=== PATIENT | female | born 1970 | race Caucasian/White ===

== ENCOUNTER 2018-03-07 12:14 | Day surgery (SDC) | payer BC ==
[~2018-03-07 12:14] MED LIST: CEFAZOLIN 1 GM INJ; DEXAMETHASONE 4 MG/ML 1 ML INJ
[2018-03-07] MEDS ORDERED: VASOPRESSIN 20 UNITS INJ (13:39)
[2018-03-07] MEDS ORDERED: NEOSTIGMINE 3 MG/3 ML SYRINGE (13:56)
[2018-03-07] MEDS ORDERED: GLYCOPYRROLATE 0.4 MG INJ (13:56)
[2018-03-07] MEDS ORDERED: FENTAnyl 50 MCG/ML VIAL (13:56)
[2018-03-07] MEDS ORDERED: PROPOFOL 20 ML (13:56)
[2018-03-07] MEDS ORDERED: ROCURONIUM 50 MG INJ (13:56)
[2018-03-07] MEDS ORDERED: DEXAMETHASONE 4 MG/ML 1 ML INJ (13:56)
[2018-03-07] MEDS ORDERED: MIDAZOLAM 1 MG/ML 2 ML INJ (13:56)
[2018-03-07] MEDS ORDERED: LIDOCAINE 2% (SDV) 5 ML INJ (13:56)
[2018-03-07] MEDS ORDERED: ONDANSETRON 4 MG INJ (13:57)
[2018-03-07] MEDS ORDERED: ATROPINE 1 MG/10 ML SYRINGE IV (14:00)
[2018-03-07] MEDS ORDERED: LABETALOL HCL 20MG INJ IV (14:00)
[2018-03-07] MEDS ORDERED: MIDAZOLAM 1 MG/ML 2 ML INJ IV (14:00)
[2018-03-07] MEDS ORDERED: ONDANSETRON 4 MG INJ IV (14:00)
[2018-03-07] MEDS ORDERED: OXYCODONE/ACETAMINOPHEN (5/325) TAB PO ×2 (14:00)
[2018-03-07] MEDS ORDERED: morphine (1 MG/ML) 10ML SYRINGE IV ×3 (14:00)
[2018-03-07] MEDS ORDERED: HYDROmorphONE 1 MG/5 ML IV SYRINGE IV ×3 (14:00)
[2018-03-07] MEDS ORDERED: FENTAnyl 50 MCG/ML VIAL IV ×2 (14:00)
[2018-03-07] MEDS ORDERED: MEPERIDINE 25 MG INJ IV (14:00)
[2018-03-07] MEDS ORDERED: DIPHENHYDRAMINE 50 MG INJ IV (14:00)
[2018-03-07] MEDS ORDERED: hydrALAzine 20 MG INJ IV (14:00)
[2018-03-07] MEDS ORDERED: EPHEDrine SULFATE 50 MG/5 ML SYG IV (14:00)
[2018-03-07] MEDS ORDERED: ACETAMINOPHEN 325 MG TAB PO (15:00)
== END 2018-03-07 16:00 | disposition home or self-care (01) ==
LOC: SDS 12:14
DX: N95.0 Postmenopausal bleeding (principal); E66.01 Morbid (severe) obesity due to excess calories; E11.9 Type 2 diabetes mellitus without complications
CPT/HCPCS: 58120; 82962; 84703; 86850; 86900; 86901

== ENCOUNTER 2018-10-12 10:15 | Inpatient (IN) | payer BC ==
[2018-10-12] MEDS ORDERED: CHOLECALCIFEROL 2,000 UNIT CAP PO (12:00)
[2018-10-12] MEDS ORDERED: GLUCOSE GEL 15 GRAM TUBE PO ×2 (12:30)
[2018-10-12] MEDS ORDERED: DEXTROSE 50% 50 ML SYRINGE IV ×2 (12:30)
[2018-10-12] MEDS ORDERED: GLUCAGON 1 MG INJ IM (12:30)
[2018-10-12] MEDS ORDERED: GLUCOSE GEL 15 GRAM TUBE BUCCAL (12:30)
[2018-10-12] MEDS: DEXTROSE 5%-0.45% NACL 1,000 ML IV (13:23)
[2018-10-12] MEDS: ASPIRIN (EC) 81 MG TAB PO (13:23)
[2018-10-12] MEDS: INSULIN ASPART [NOVOLOG] 3 ML PEN SC ×3 (13:30→20:20)
[2018-10-12] MEDS: IBUPROFEN 800 MG TAB PO (13:30)
[2018-10-12] MEDS: CEFTRIAXONE 1 GM/50 ML (PMX) 50 ML IVPB (16:11)
[2018-10-12 17:05] LABS: HEMATOCRIT 39.2 % (37.0-47.0); HEMOGLOBIN 12.6 g/dl (12.0-16.0)
[2018-10-12] MEDS ORDERED: metFORMIN 500 MG TAB PO (18:05)
[2018-10-12] MEDS: SERTRALINE 100 MG TAB PO (20:18)
[2018-10-12] MEDS: IBUPROFEN 400 MG TAB PO (20:18)
[2018-10-12] MEDS: ATORVASTATIN 20 MG TAB PO (20:18)
[2018-10-13 05:14] LABS: ADD MAN DIFF? NO
[2018-10-13 05:17] LABS: BASOPHIL # 0.1 10^3/ul (0.0-0.1); BASOPHILS % 0.7 % (0.0-2.0); EOSINOPHILS # 0.6 10^3/ul (0.0-0.5); HEMATOCRIT 40.9 % (37.0-47.0); HEMOGLOBIN 12.9 g/dl (12.0-16.0); LYMPHOCYTES # 2.1 10^3/ul (0.8-2.9); LYMPHOCYTES % 22.6 % (15.0-51.0); MEAN CORPUSCULAR HEMOGLOBIN 26.1 pg (29.0-33.0); MEAN CORPUSCULAR HGB CONC 31.5 g/dl (32.0-37.0); MEAN CORPUSCULAR VOLUME 82.8 fl (82.0-101.0); MEAN PLATELET VOLUME 9.4 fl (7.4-10.4); MONOCYTE # 0.7 10^3/ul (0.3-0.9); MONOCYTES % 8.1 % (0.0-11.0); NEUTROPHIL # 5.7 10^3/ul (1.6-7.5); NEUTROPHILS % 62.4 % (39.0-77.0); PLATELET COUNT 337 10^3/UL (140-415); RED BLOOD COUNT 4.94 10^6/ul (4.20-5.40); RED CELL DISTRIBUTION WIDTH 14.4 % (11.5-14.5)
[2018-10-13 05:17] LABS: WHITE BLOOD COUNT 9.1 10^3/ul (4.8-10.8)
[2018-10-13 05:59] LABS: ALANINE AMINOTRANSFERASE 26 IU/L (13-69); ALBUMIN/GLOBULIN RATIO 1.17; ALKALINE PHOSPHATASE 90 IU/L (42-121); ANION GAP 10 (5-13); ASPARTATE AMINO TRANSFERASE 28 IU/L (15-46); BILIRUBIN,INDIRECT 0.7 mg/dl (0-1.1); BILIRUBIN,TOTAL 0.7 mg/dl (0.2-1.3); BLOOD UREA NITROGEN 10 mg/dl (7-20); CALCIUM 9.8 mg/dl (8.4-10.2); CARBON DIOXIDE 31 mmol/L (21-31); CHLORIDE 102 mmol/L (97-110); CREATININE 0.44 mg/dl (0.44-1.00); Estimated GFR > 60 mL/min (>60); GLUCOSE 146 mg/dl (70-220); SODIUM 143 mmol/L (135-144); TOTAL PROTEIN 7.4 g/dl (6.1-8.1)
[2018-10-13] MEDS ORDERED: LANSOPRAZOLE 15 MG CAP GTB (06:00)
[2018-10-13 06:03] LABS: POTASSIUM 2.8 mmol/L (3.5-5.1)
[2018-10-13] MEDS: ONDANSETRON 4 MG INJ IV ×3 (06:43→23:53)
[2018-10-13] MEDS: POTASSIUM CHLORIDE 100 ML IVPB ×2 (06:44→11:56)
[2018-10-13] MEDS: INSULIN ASPART [NOVOLOG] 3 ML PEN SC ×4 (08:00→20:48)
[2018-10-13] MEDS: IBUPROFEN 400 MG TAB PO (08:24)
[2018-10-13] MEDS: ASPIRIN (EC) 81 MG TAB PO (08:24)
[2018-10-13] MEDS: hydrALAzine 20 MG INJ IV (08:24)
[2018-10-13] MEDS: INFLUENZA VIRUS VACCINE 0.5 ML (DISPENSING) IM* (09:00)
[2018-10-13] MEDS: METOCLOPRAMIDE 10 MG INJ IV ×3 (11:30→20:41)
[2018-10-13] MEDS: LOSARTAN 50 MG TAB PO (11:56)
[2018-10-13 13:10] LABS: LIPASE 98 U/L (23-300)
[2018-10-13] MEDS: DEXTROSE 5%-0.45% NACL 1,000 ML IV (15:26)
[2018-10-13] MEDS: CEFTRIAXONE 1 GM/50 ML (PMX) 50 ML IVPB (15:26)
[2018-10-13] MEDS: ATORVASTATIN 20 MG TAB PO (23:05)
[2018-10-13] MEDS: SERTRALINE 100 MG TAB PO (23:05)
[2018-10-13] MEDS: SUCRALFATE (100 MG/ML) 10ML CUP PO (23:54)
[2018-10-14] MEDS: hydrALAzine 20 MG INJ IV ×2 (00:22→23:04)
[2018-10-14] MEDS: METOCLOPRAMIDE 10 MG INJ IV ×4 (02:54→19:08)
[2018-10-14 05:37] LABS: ADD MAN DIFF? NO
[2018-10-14] MEDS: LANSOPRAZOLE 15 MG CAP GTB (05:40)
[2018-10-14 05:47] LABS: BASOPHILS % 0.3 % (0.0-2.0); EOSINOPHILS # 0.1 10^3/ul (0.0-0.5); HEMATOCRIT 39.6 % (37.0-47.0); HEMOGLOBIN 12.7 g/dl (12.0-16.0); LYMPHOCYTES # 2.3 10^3/ul (0.8-2.9); LYMPHOCYTES % 18.1 % (15.0-51.0); MEAN CORPUSCULAR HEMOGLOBIN 26.2 pg (29.0-33.0); MEAN CORPUSCULAR HGB CONC 32.1 g/dl (32.0-37.0); MEAN CORPUSCULAR VOLUME 81.8 fl (82.0-101.0); MONOCYTE # 1.1 10^3/ul (0.3-0.9); MONOCYTES % 8.6 % (0.0-11.0); NEUTROPHILS % 71.4 % (39.0-77.0); PLATELET COUNT 430 10^3/UL (140-415); RED BLOOD COUNT 4.84 10^6/ul (4.20-5.40); RED CELL DISTRIBUTION WIDTH 14.3 % (11.5-14.5)
[2018-10-14 05:47] LABS: WHITE BLOOD COUNT 12.6 10^3/ul (4.8-10.8)
[2018-10-14 06:01] LABS: ANION GAP 11 (5-13); BLOOD UREA NITROGEN 10 mg/dl (7-20); CALCIUM 9.7 mg/dl (8.4-10.2); CARBON DIOXIDE 27 mmol/L (21-31); CHLORIDE 100 mmol/L (97-110); Estimated GFR > 60 mL/min (>60); GLUCOSE 166 mg/dl (70-220); SODIUM 138 mmol/L (135-144)
[2018-10-14 06:11] LABS: POTASSIUM 2.8 mmol/L (3.5-5.1)
[2018-10-14] MEDS: INSULIN ASPART [NOVOLOG] 3 ML PEN SC ×4 (08:00→21:00)
[2018-10-14] MEDS: SUCRALFATE (100 MG/ML) 10ML CUP PO ×3 (09:00→21:59)
[2018-10-14] MEDS: ASPIRIN (EC) 81 MG TAB PO (09:00)
[2018-10-14] MEDS: LOSARTAN 50 MG TAB PO (09:00)
[2018-10-14] MEDS: POTASSIUM CHLORIDE 100 ML IVPB ×2 (09:37→14:30)
[2018-10-14] MEDS: DEXTROSE 5%-0.45% NACL 1,000 ML IV ×2 (12:00→23:08)
[2018-10-14] MEDS: CEFTRIAXONE 1 GM/50 ML (PMX) 50 ML IVPB (19:08)
[2018-10-14] MEDS: SERTRALINE 100 MG TAB PO (21:29)
[2018-10-14] MEDS: ATORVASTATIN 20 MG TAB PO (21:29)
[2018-10-15] MEDS: METOCLOPRAMIDE 10 MG INJ IV ×4 (02:11→22:38)
[2018-10-15] MEDS: morphine 2 MG INJ IV ×2 (02:15→15:52)
[2018-10-15] MEDS: INSULIN ASPART [NOVOLOG] 3 ML PEN SC ×5 (05:00→20:35)
[2018-10-15] MEDS: LANSOPRAZOLE 15 MG CAP GTB (05:24)
[2018-10-15 05:47] LABS: ADD MAN DIFF? NO
[2018-10-15 05:54] LABS: BASOPHILS % 0.3 % (0.0-2.0); EOSINOPHILS # 0.2 10^3/ul (0.0-0.5); EOSINOPHILS % 2.5 % (0.0-7.0); HEMATOCRIT 38.8 % (37.0-47.0); HEMOGLOBIN 12.3 g/dl (12.0-16.0); LYMPHOCYTES # 2.1 10^3/ul (0.8-2.9); LYMPHOCYTES % 23.1 % (15.0-51.0); MEAN CORPUSCULAR HEMOGLOBIN 26.3 pg (29.0-33.0); MEAN CORPUSCULAR HGB CONC 31.7 g/dl (32.0-37.0); MEAN CORPUSCULAR VOLUME 82.9 fl (82.0-101.0); MEAN PLATELET VOLUME 9.4 fl (7.4-10.4); MONOCYTE # 0.7 10^3/ul (0.3-0.9); MONOCYTES % 7.5 % (0.0-11.0); NEUTROPHIL # 6.1 10^3/ul (1.6-7.5); NEUTROPHILS % 66.2 % (39.0-77.0); PLATELET COUNT 346 10^3/UL (140-415); RED BLOOD COUNT 4.68 10^6/ul (4.20-5.40); RED CELL DISTRIBUTION WIDTH 14.4 % (11.5-14.5)
[2018-10-15 05:54] LABS: WHITE BLOOD COUNT 9.2 10^3/ul (4.8-10.8)
[2018-10-15 06:11] LABS: INR 1.11; PARTIAL THROMBOPLASTIN TIME 28.6 Sec (23.0-35.0); PROTIME 14.4 Sec (11.9-14.9); PT RATIO 1.1
[2018-10-15 06:26] LABS: ALANINE AMINOTRANSFERASE 30 IU/L (13-69); ALBUMIN 3.7 g/dl (3.3-4.9); ALBUMIN/GLOBULIN RATIO 1.19; ALKALINE PHOSPHATASE 80 IU/L (42-121); ANION GAP 9 (5-13); ASPARTATE AMINO TRANSFERASE 28 IU/L (15-46); BILIRUBIN,INDIRECT 0.8 mg/dl (0-1.1); BILIRUBIN,TOTAL 0.8 mg/dl (0.2-1.3); BLOOD UREA NITROGEN 10 mg/dl (7-20); CALCIUM 9.4 mg/dl (8.4-10.2); CARBON DIOXIDE 30 mmol/L (21-31); CHLORIDE 101 mmol/L (97-110); CREATININE 0.37 mg/dl (0.44-1.00); Estimated GFR > 60 mL/min (>60); GLUCOSE 139 mg/dl (70-220); LIPASE 69 U/L (23-300); SODIUM 140 mmol/L (135-144); TOTAL PROTEIN 6.8 g/dl (6.1-8.1)
[2018-10-15 06:30] LABS: POTASSIUM 2.9 mmol/L (3.5-5.1)
[2018-10-15] MEDS: ASPIRIN (EC) 81 MG TAB PO (09:00)
[2018-10-15] MEDS: LOSARTAN 50 MG TAB PO (09:00)
[2018-10-15] MEDS: SUCRALFATE (100 MG/ML) 10ML CUP PO ×2 (09:00→21:02)
[2018-10-15] MEDS: POTASSIUM CHLORIDE 100 ML IVPB ×2 (09:30→13:49)
[2018-10-15] MEDS: ONDANSETRON 4 MG INJ IV (12:43)
[2018-10-15] MEDS: hydrALAzine 20 MG INJ IV (13:06)
[2018-10-15] MEDS: PROPOFOL 40 ML (13:51)
[2018-10-15] MEDS: DEXTROSE 5%-0.45% NACL 1,000 ML IV (13:55)
[2018-10-15] MEDS: ERYTHROMYCIN BASE (DR) 250 MG CAP PO ×2 (15:52→21:03)
[2018-10-15] MEDS: CEFTRIAXONE 1 GM/50 ML (PMX) 50 ML IVPB (15:52)
[2018-10-15] MEDS: FLUCONAZOLE 200 MG TAB PO (15:52)
[2018-10-15 17:15] LABS: POTASSIUM 3.1 mmol/L (3.5-5.1)
[2018-10-15] MEDS: ATORVASTATIN 20 MG TAB PO (21:03)
[2018-10-15] MEDS: SERTRALINE 100 MG TAB PO (21:03)
[2018-10-16] MEDS: ERYTHROMYCIN BASE (DR) 250 MG CAP PO ×2 (06:13→13:42)
[2018-10-16] MEDS: LANSOPRAZOLE 15 MG CAP GTB (06:13)
[2018-10-16 06:29] LABS: ADD MAN DIFF? NO
[2018-10-16 06:35] LABS: WHITE BLOOD COUNT 8.8 10^3/ul (4.8-10.8)
[2018-10-16 06:35] LABS: BASOPHIL # 0.1 10^3/ul (0.0-0.1); BASOPHILS % 0.8 % (0.0-2.0); EOSINOPHILS # 0.4 10^3/ul (0.0-0.5); EOSINOPHILS % 4.2 % (0.0-7.0); HEMATOCRIT 38.7 % (37.0-47.0); HEMOGLOBIN 12.2 g/dl (12.0-16.0); LYMPHOCYTES # 2.7 10^3/ul (0.8-2.9); LYMPHOCYTES % 31.1 % (15.0-51.0); MEAN CORPUSCULAR HEMOGLOBIN 26.3 pg (29.0-33.0); MEAN CORPUSCULAR HGB CONC 31.5 g/dl (32.0-37.0); MEAN CORPUSCULAR VOLUME 83.6 fl (82.0-101.0); MEAN PLATELET VOLUME 9.8 fl (7.4-10.4); MONOCYTE # 0.7 10^3/ul (0.3-0.9); MONOCYTES % 7.9 % (0.0-11.0); NEUTROPHIL # 4.9 10^3/ul (1.6-7.5); NEUTROPHILS % 55.8 % (39.0-77.0); PLATELET COUNT 322 10^3/UL (140-415); RED BLOOD COUNT 4.63 10^6/ul (4.20-5.40); RED CELL DISTRIBUTION WIDTH 14.7 % (11.5-14.5)
[2018-10-16 07:12] LABS: PHOSPHORUS 4.5 mg/dl (2.5-4.9)
[2018-10-16 07:16] LABS: ALANINE AMINOTRANSFERASE 34 IU/L (13-69); ALBUMIN 3.5 g/dl (3.3-4.9); ALBUMIN/GLOBULIN RATIO 1.16; ALKALINE PHOSPHATASE 80 IU/L (42-121); ANION GAP 9 (5-13); ASPARTATE AMINO TRANSFERASE 29 IU/L (15-46); BILIRUBIN,INDIRECT 0.9 mg/dl (0-1.1); BILIRUBIN,TOTAL 0.9 mg/dl (0.2-1.3); BLOOD UREA NITROGEN 11 mg/dl (7-20); CALCIUM 9.4 mg/dl (8.4-10.2); CARBON DIOXIDE 28 mmol/L (21-31); CHLORIDE 104 mmol/L (97-110); CREATININE 0.39 mg/dl (0.44-1.00); Estimated GFR > 60 mL/min (>60); GLUCOSE 133 mg/dl (70-220); SODIUM 141 mmol/L (135-144); TOTAL PROTEIN 6.5 g/dl (6.1-8.1)
[2018-10-16] MEDS: INSULIN ASPART [NOVOLOG] 3 ML PEN SC ×2 (08:00→12:00)
[2018-10-16] MEDS: ASPIRIN (EC) 81 MG TAB PO (08:46)
[2018-10-16] MEDS: FLUCONAZOLE 200 MG TAB PO (08:46)
[2018-10-16] MEDS: SUCRALFATE (100 MG/ML) 10ML CUP PO (08:46)
[2018-10-16] MEDS: LOSARTAN 50 MG TAB PO (08:47)
[2018-10-16] MEDS: POTASSIUM CHLORIDE (SR) 20 MEQ TAB PO ×2 (10:25→13:42)
== END 2018-10-16 15:40 | disposition home or self-care (01) | DRG 392 ==
LOC: PP2 10:15
PROVIDERS: Internal Medicine Nephrology
PROC: 0DB68ZX Excision of Stomach, Via Natural or Artificial Opening Endoscopic, Diagnostic (ICD-10-PCS; principal; 2018-10-15 11:55)
PROC: 0DD58ZX Extraction of Esophagus, Via Natural or Artificial Opening Endoscopic, Diagnostic (ICD-10-PCS; 2018-10-15 11:55)
DX: K29.00 Acute gastritis without bleeding (principal); K26.3 Acute duodenal ulcer without hemorrhage or perforation; B37.81 Candidal esophagitis; K91.870 Postprocedural hematoma of a digestive system organ or structure following a digestive system procedure; K21.0 Gastro-esophageal reflux disease with esophagitis; K80.80 Other cholelithiasis without obstruction; I10 Essential (primary) hypertension; E87.6 Hypokalemia; E66.9 Obesity, unspecified; E55.9 Vitamin D deficiency, unspecified; E78.5 Hyperlipidemia, unspecified; E11.9 Type 2 diabetes mellitus without complications; F32.9 Major depressive disorder, single episode, unspecified; Y83.8 Other surgical procedures as the cause of abnormal reaction of the patient, or of later complication, without mention of misadventure at the time of the procedure; Z68.33 Body mass index [BMI] 33.0-33.9, adult; Z87.891 Personal history of nicotine dependence
CPT/HCPCS: 78226; 80048; 80053; 82962; 83690; 83735; 84100; 84132; 85014; 85018; 85025; 85610; 85730; 88104; 88305; 88312; 90686